=== PATIENT | female | born 1980 | race Caucasian/White ===

== ENCOUNTER 2016-09-29 20:30 | Emergency (ER) | payer OTHER ==
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
--- NOTE | 2016-09-29 21:11 | ED ORDER SUMMARY ---
..... Patient: CHARY LABOY OrderSheet [facility] VisitID: [id number] [place] [address] 36y, F Registration Date/Time: 09/29/2016 ORDER SHEET Weight: 56.6 kg (stated) Allergies: No Known Drug Allergy GENERAL ORDERS: MEDICATION ORDERS: Motrin PO 600 mg (NOW) (21:10 09/29/2016 Francheska P.A.-C) (23:44 Indra R.N.) Flexeril PO 10 mg (NOW) (21:10 09/29/2016 Francheska P.A.-C) (23:45 Indra R.N.) IV FLUIDS: ORDER SHEET NOTES: [Electronically signed by Edda LangATwin-Vi (21:20 09/29/2016)] [Electronically signed by Blanco Rojas R.N. (23:45 09/29/2016)] [Electronically locked/signed by Blanco Rojas R.N. (23:45 09/29/2016)]
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
--- NOTE | 2016-09-29 21:11 | ED ORDER SUMMARY ---
..... Patient: CHARY LABOY OrderSheet [facility] VisitID: [id number] [place] [address] 36y, F Registration Date/Time: 09/29/2016 ORDER SHEET Weight: 56.6 kg (stated) Allergies: No Known Drug Allergy GENERAL ORDERS: MEDICATION ORDERS: Motrin PO 600 mg (NOW) (21:10 09/29/2016 Francheska P.A.-C) (23:44 Indra R.N.) Flexeril PO 10 mg (NOW) (21:10 09/29/2016 Francheska P.A.-C) (23:45 Indra R.N.) IV FLUIDS: ORDER SHEET NOTES: [Electronically signed by Edda LangATwin-Vi (21:20 09/29/2016)] [Electronically signed by Blanco Rojas R.N. (23:45 09/29/2016)] [Electronically locked/signed by Blanco Rojas R.N. (23:45 09/29/2016)]
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
--- NOTE | 2016-09-29 23:45 | ED MED RECONCILIATION SUMMARY ---
Patient: CHARY LABOY Medication Reconciliation Report [facility] VisitID: [id number] [address] [place] [address] 36y, F Registration Date/Time: 09/29/2016 Weight: 56.6 kg Height/Length: (not available) BMI: 22.5 ALLERGIES: No Known Drug Allergy The patient's Home Medications are listed below: THE FOLLOWING MEDICATIONS NEED TO BE RECONCILED: Citalopram Hydrobromide Oral The source(s) of the original Home Medication information: Not obtained. The following Medications were given to the patient in the Emergency Department: Motrin [PO] PO 600 mg, administered: 09/29/2016 9:25:00 PM Flexeril [PO] PO 10 mg, administered: 09/29/2016 9:25:00 PM The following Medications were prescribed to the patient: Soma 350 mg: Take 1 orally every 6 hours as needed for muscle spasm. Dispense twenty (20). No refills. Substitution is permissible. -- Edda Lang P.A.-C
--- NOTE | 2016-09-29 23:45 | ED MAR SUMMARY ---
..... Medication Administration Record [facility] [address] [place] [address] Patient: CHARY LABOY Visit ID: [id number] 36y, F Weight: 56.6 kg Height/Length: 62.5 in BMI: 22.5 ALLERGIES: No Known Drug Allergy Given 09/29/2016 Blanco Rojas RTwinN. Medication Administered: MOTRIN [PO], Dose: 600 mg PO. Medication Ordered: Motrin PO 600 mg (NOW). Given 21:09/29/2016 Blanco Rojas, R.N. Medication Administered: FLEXERIL [PO] (CYCLOBENZAPRINE HCL), Dose: 10 mg Tablets PO. Medication Ordered: Flexeril PO 10 mg (NOW).
--- NOTE | 2016-09-29 23:45 | ED MED RECONCILIATION SUMMARY ---
Patient: CHARY LABOY Medication Reconciliation Report [facility] VisitID: [id number] [address] [place] [address] 36y, F Registration Date/Time: 09/29/2016 Weight: 56.6 kg Height/Length: (not available) BMI: 22.5 ALLERGIES: No Known Drug Allergy The patient's Home Medications are listed below: THE FOLLOWING MEDICATIONS NEED TO BE RECONCILED: Citalopram Hydrobromide Oral The source(s) of the original Home Medication information: Not obtained. The following Medications were given to the patient in the Emergency Department: Motrin [PO] PO 600 mg, administered: 09/29/2016 9:25:00 PM Flexeril [PO] PO 10 mg, administered: 09/29/2016 9:25:00 PM The following Medications were prescribed to the patient: Soma 350 mg: Take 1 orally every 6 hours as needed for muscle spasm. Dispense twenty (20). No refills. Substitution is permissible. -- Edda Lang P.A.-C
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
--- NOTE | 2016-09-29 23:45 | ED MAR SUMMARY ---
..... Medication Administration Record [facility] [address] [place] [address] Patient: CHARY LABOY Visit ID: [id number] 36y, F Weight: 56.6 kg Height/Length: 62.5 in BMI: 22.5 ALLERGIES: No Known Drug Allergy Given 09/29/2016 Blanco Rojas RTwinN. Medication Administered: MOTRIN [PO], Dose: 600 mg PO. Medication Ordered: Motrin PO 600 mg (NOW). Given 21:09/29/2016 Blanco Rojas, R.N. Medication Administered: FLEXERIL [PO] (CYCLOBENZAPRINE HCL), Dose: 10 mg Tablets PO. Medication Ordered: Flexeril PO 10 mg (NOW).
== END 2016-09-29 21:30 | disposition home or self-care (01) ==
LOC: ED SRH 20:30
DX: S13.4XXA Sprain of ligaments of cervical spine, initial encounter (principal); S33.5XXA Sprain of ligaments of lumbar spine, initial encounter; S23.3XXA Sprain of ligaments of thoracic spine, initial encounter; V53.5XXA Driver of pick-up truck or van injured in collision with car, pick-up truck or van in traffic accident, initial encounter; Y93.9 Activity, unspecified; Y92.410 Unspecified street and highway as the place of occurrence of the external cause; Y99.9 Unspecified external cause status